=== PATIENT | female | born 1985 | race Caucasian/White ===

== ENCOUNTER → 2017-05-04 | Outpatient (CLI) | payer BC, MEDICAID, OTHER ==
[~2017-05-04] MED LIST: ACHYD1T PO; DCS100C PO; FERR-57 PO; FRS325T PO; HYDR-3583 PO; IBP800T PO; OMEP20CA12 PO; ONDN4T PO; PREN1TAB39 PO; birth control; diuretic
--- NOTE | 2017-05-04 10:47 | Diagnostic Imaging Report ---
EXAMINATION: Ultrasound of the right breast. INDICATION: Right breast rash and lump. FINDINGS: By history, the patient has a rash and a lump along the undersurface of the right breast. The diagnostic mammogram performed earlier today failed to show any sign of a mass or an acute abnormality in this area. On this study, there is no discrete solid or cystic mass evident in this region. Clinical followup is recommended. IMPRESSION: There is no acute abnormality in the area of the patient's rash and there is no discrete solid or cystic mass in this region either.. Clinical followup is recommended. ACR BI-RADS Category 1: Negative. Dictated by: Dictated on workstation # [id number]
--- NOTE | 2017-05-05 10:17 | Diagnostic Imaging Report ---
Digital mammogram bilateral diagnostic. INDICATION: Right breast lump and rash. This is the patient's baseline study. At this time she does complain of a rash along the undersurface of the right breast in the 6 o'clock position. There is only a mild amount of fibroglandular tissue in both breasts. There is no primary or secondary sign of malignancy identified. There is no cutaneous abnormality evident in the region of the patient's rash. IMPRESSION: 1. There is no evidence for an acute abnormality or for malignancy. 2. Ultrasound of the right breast is pending for further study. ACR BI-RADS Category 0: Incomplete. (Needs additional imaging evaluation). Result letter will be mailed to the patient. Note: At least 10% of breast cancer is not imaged by mammography. Dictated by: Dictated on workstation # [id number]
== END ==
LOC: RAD 07:58
PROVIDERS: ATTEND Nurse Practitioner Family
DX: N63 Unspecified lump in breast (principal); R21 Rash and other nonspecific skin eruption
CPT/HCPCS: 77066

== ENCOUNTER → 2017-05-17 | Outpatient (CLI) | payer BC, MEDICAID, OTHER ==
--- NOTE | 2017-05-17 14:02 | Diagnostic Imaging Report ---
EXAM: CT head. TECHNIQUE: Noncontrast axial images of the brain were obtained. INDICATION: Chronic tension headache. FINDINGS: There is no intracranial hemorrhage, edema or mass effect. The brain parenchyma appears unremarkable. No hydrocephalus. The visualized portions of the orbits and paranasal sinuses appear unremarkable. IMPRESSION: Unremarkable study. Dictated by: Dictated on workstation # [id number]
== END ==
LOC: RAD 13:25
PROVIDERS: ATTEND Nurse Practitioner Family
DX: G44.221 Chronic tension-type headache, intractable (principal)
CPT/HCPCS: 70450

== ENCOUNTER 2021-05-04 11:51 | Outpatient (CLI) | payer SELFPAY ==
[~2021-05-04] VITALS: Ht 157 cm; Wt 122.5 kg
[2021-05-04 11:54] VITALS: BP 137/90
[2021-05-04] MEDS ORDERED: ACETAMINOPHEN 500 MG TAB (TYLENOL) PO PRN (12:15)
[2021-05-04] MEDS ORDERED: EPINEPHrine INJECTION 1 MG/ML AMP IM PRN (12:15)
[2021-05-04] MEDS ORDERED: diphenhydrAMINE 50 MG/ML INJ (BENADRYL) IV PRN (12:15)
[2021-05-04] MEDS ORDERED: ONDANSETRON 4 MG/2 ML (SDV) Z0FRAN IV PRN (12:15)
[2021-05-04] MEDS ORDERED: CASIRIVIMAB/IMDEVIMAB 1,200 MG in NS (IVPB) 250 ML IV ONE (12:15)
[2021-05-04 13:55] VITALS: BP 127/71
== END 2021-05-04 14:07 | disposition home or self-care (01) ==
LOC: INFUSION 11:51
PROVIDERS: ATTEND Nurse Practitioner
DX: Z23 Encounter for immunization (principal); U07.1 COVID-19